=== PATIENT | female | born 1995 | race Caucasian/White ===

== ENCOUNTER 2019-03-21 10:21 | Emergency (ER) | payer BC, SELFPAY ==
--- NOTE | 2019-03-21 10:32 | ED.URI ---
HPI - URI/Sore Throat General Chief Complaint: Upper Respiratory Infection Stated Complaint: sore throat/congestion/cough Time Seen by Provider: 03/21/19 10:32 Source: patient and RN notes reviewed History of Present Illness HPI Narrative: Patient is a 23-year-old female that presents the urgent care with complaints of sore throat since last Monday, congestion, cough for the last 2 days. Patient denies any recent fevers, nausea, vomiting. 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 Patient has been using Mucinex without much relief. No other acute complaints. No acute distress noted. Patient read the plan of care. Related Data Home Medications Medication Instructions Recorded Confirmed No Home Medications 03/21/19 03/21/19 Allergies Allergy/AdvReac Type Severity Reaction Status Date / Time No Known Allergies Allergy Verified 03/21/19 10:40 Review of Systems Review of Systems: Narrative: CONSTITUTIONAL: Denies fever, chills, or sweats. EYES: Denies visual changes, redness, or discharge. ENT: Reports of rhinorrhea, sinus congestion, sore throat CARDIOVASCULAR: Denies chest pain, palpitations, or edema. RESPIRATORY: Reports of nonproductive cough without dyspnea or wheezing GASTROINTESTINAL: Denies abdominal pain, nausea, vomiting, or diarrhea. GENITOURINARY: Denies dysuria or hematuria. SKIN: Denies rash or itching. MUSCULOSKELETAL: Denies back pain, joint pain, or myalgia. NEUROLOGIC: Denies headache, numbness, or weakness. All other systems reviewed are negative, except as documented in HPI. PMFSH Comments At the time of my signature, I reviewed and agree with the nursing past medical, surgical, social, and family history. There is no relevant family history pertinent to the patient complaint. Exam Narrative: Exam Narrative: GENERAL: This is a well-nourished, well-developed patient, in no apparent distress. HEAD: normocephalic, atraumatic. EYES: PERRL. Sclera clear/white. Vision is grossly intact. EARS: External ears normal, auditory canals clear and without drainage, TMs normal without perforation. Hearing grossly intact. NOSE: External nose normal with no obvious nasal discharge, mild bilateral erythemic nares with clear rhinorrhea THROAT: Mucous membranes moist, posterior pharynx clear. Mild postnasal drainage NECK: Neck supple CARDIOVASCULAR: Regular rate and rhythm without murmurs, gallops, or rubs. RESPIRATORY: Clear to auscultation. Breath sounds equal bilaterally. No wheezes, rales, or rhonchi. SKIN: warm, intact with no suspicious lesions or rash, good texture and turgor. NEURO: awake, alert, and oriented to person, place and time. There were no obvious focal neurologic abnormalities. EXTREMITIES: No clubbing, cyanosis, or edema. Course Vital Signs Vital signs: Vital Signs Temperature 98.9 F 03/21/19 10:39 Pulse Rate 83 03/21/19 10:39 Respiratory Rate 18 03/21/19 10:39 Blood Pressure 129/78 03/21/19 10:39 Pulse Oximetry 99 03/21/19 10:39 Temperature 98.9 F 03/21/19 10:39 Pulse Rate 83 03/21/19 10:39 Respiratory Rate 18 03/21/19 10:39 Blood Pressure 129/78 03/21/19 10:39 Pulse Oximetry 99 03/21/19 10:39 Reviewed MDM - URI/Sore Throat MDM Narrative Medical decision making narrative: Advised the patient to continue using Mucinex as needed. Incorporate Claritin or Zyrtec as well as Flonase nasal spray for sinus symptom relief. Use Tylenol/ibuprofen as needed. Follow-up with PCP within 2 to 5 days or for worsening symptoms or failure to improve. Differential Diagnosis Differential diagnosis: Likely upper respiratory infection, otitis media, sinusitis, viral infection, bronchitis, influenza and pharyngitis Critical Care Time Critical Care Time Critical Care Time: No Discharge Plan Discharge Clinical Impression: Upper respiratory infection Qualifiers: URI type: unspecified viral URI Qualified
[2019-03-21 10:39] VITALS: BP 129/78; PULSE 83; RESP 18; TEMP 37.2; O2SAT 99
== END 2019-03-21 10:54 | disposition home or self-care (01) ==
PROVIDERS: Emergency Provider Nurse Practitioner Family
DX: J06.9 Acute upper respiratory infection, unspecified (principal)
CPT/HCPCS: 99201; G0463